=== PATIENT | male | born 1945 | race Caucasian/White ===

== ENCOUNTER 2023-04-26 06:54 | Day surgery (SDC) | payer OTHER ==
[~2023-04-26] VITALS: Ht 167.6 cm; Wt 85.5 kg
[2023-04-26] MEDS ORDERED: SODIUM CHLORIDE 0.9% 1,000 ML IV ONE (07:00)
[2023-04-26] MEDS ORDERED: TELM1TAB42 PO (07:52)
[2023-04-26] MEDS ORDERED: ALBU18HF12 IH (07:52)
[2023-04-26] MEDS ORDERED: TAMS0.4C34 PO (07:52)
[2023-04-26] MEDS ORDERED: MONT-35 PO (07:52)
[2023-04-26] MEDS ORDERED: AMLO2.5T96 PO (07:52)
[2023-04-26] MEDS ORDERED: ASPI-1444 PO (07:52)
[2023-04-26] MEDS ORDERED: CETI-450 PO (07:52)
[2023-04-26] MEDS ORDERED: ALLO-45 PO (07:52)
[2023-04-26] MEDS ORDERED: FAMO20 PO (07:52)
[2023-04-26] MEDS ORDERED: FentaNYL CITRATE PF 100 MCG/2 ML VIAL ONE (08:10)
[2023-04-26] MEDS ORDERED: MIDAZOLAM HCL 2 MG/2 ML VIAL ONE (08:10)
[2023-04-26 09:25] VITALS: PULSE 55; RESP 16; O2SAT 99
[2023-04-26] MEDS ORDERED: MethylPREDNISolone SOD SUCC 125 MG/2 ML VIAL IVP ONE (09:30)
[2023-04-26] MEDS ORDERED: MethylPREDNISolone SOD SUCC 125 MG/2 ML VIAL ONE (10:02)
== END 2023-04-26 11:05 | disposition home or self-care (01) ==
LOC: SURGERY 06:54
PROVIDERS: ATTEND Internal Medicine Critical Care Medicine
DX: J38.4 Edema of larynx (principal); B37.0 Candidal stomatitis; I10 Essential (primary) hypertension; M10.9 Gout, unspecified; E78.00 Pure hypercholesterolemia, unspecified; Z79.899 Other long term (current) drug therapy
CPT/HCPCS: 31623; 87206; 87101; 87220; 87070; 31624; 94640; 71045; 87015; J3010; J2250; J2930; 88112